=== PATIENT | male | born 1965 | race Caucasian/White ===

== ENCOUNTER 2020-07-27 22:30 | Emergency (ER) | payer SELFPAY ==
--- NOTE | 2020-07-27 22:58 | EDM.PDOC ---
ED HPI GENERAL MEDICAL PROBLEM - General Chief Complaint: Lower Extremity Injury/Pain Stated Complaint: [facility] Time Seen by Provider: 07/27/20 22:58 Right Knee Pain Score (Numeric/FACES): 5 - Related Data Allergies Allergy/AdvReac Type Severity Reaction Status Date / Time No Known Allergies Allergy Verified 07/27/20 22:41 Home Meds: Home Meds . [No Known Home Meds] 07/27/20 [History] Review of Systems - Review of Systems Review Of Systems: Comprehensive ROS is negative, except as noted in HPI. ED EXAM, GENERAL - Physical Exam Exam: See Below Free Text/Narrative:: See the physical exam by Madelaine Kaur Course - Vital Signs Last Recorded V/S: Last Vital Signs Temp 36.3 C 07/27/20 22:35 Pulse 64 07/27/20 22:35 Resp 20 07/27/20 22:35 BP 161/100 H 07/27/20 22:35 Pulse Ox 93 L 07/27/20 22:35 - Orders/Labs/Meds Orders: Active Orders 24 hr Category Date Time Status Knee 3V Rt [CR] Stat Exams 07/27/20 23:16 Ordered Knee wo Cont Rt [CT] Stat Exams 07/28/20 01:01 Taken Tibia Fibula Rt [CR] Stat Exams 07/27/20 23:16 Taken Meds: Medications Discontinued Medications Generic Name Dose Route Start Last Admin Trade Name Dominguezq PRN Reason Stop Dose Admin Fentanyl 50 mcg 07/28/20 01:57 07/28/20 02:06 Fentanyl 100 Mcg/2 Ml Sdv IVPUSH 07/28/20 01:58 50 mcg ONETIME STA Administration - Re-Assessments/Exams Free Text/Narrative Re-Assessment/Exam: 07/28/20 01:04 X-rays reviewed he has a proximal tibia fracture this may extend into a medial plateau fracture and I cannot exclude a proximal fibular fracture. Dr. Dwyer, on-call orthopedic surgeons and is, has reviewed these is requesting a knee CT without contrast with 3D reconstruction. And will call the patient on Thursday to formulate a plan he wants the patient placed in knee immobilizer and crutches 07/28/20 02:[address] has been obtained. This will be forwarded to [facility] in [place] as well as [facility] [place]. Patient was fitted with a knee immobilizer and fitted for crutches will discharge home. He should be contacted Thursday by [facility] to schedule a appointment for early next week. The patient is given a knee have mobilizer to minimize further knee and lower leg fracture injury and further damage. He is given crutches because he cannot bear weight on this leg because of the multitude of fractures. Departure - Departure Time of Disposition: 02:31 Disposition: Home, Self-Care Clinical Impression: Fracture of proximal end of right tibia - Discharge Information Instructions: Crutch Use, Adult, [id number], How to Use a Knee Immobilizer, [id number], Tibial Fracture, Adult Forms: ED Department Discharge Additional Instructions: Return to the emergency room with any questions problems or worsening symptoms. You should be contacted by [facility] Thursday if you do not hear from them give them a call [phone]. Use the crutches at all times do not bear weight on this leg. Wear the knee immobilizer at all times. For pain use Tylenol primarily however remain to give you some hydrocodone because you will need it. Keep an eye on your total Tylenol intake it should not exceed 4000 mg in a 24-hour. Each of the pain pills contains 325 mg of Tylenol. You will be dispensed 20 pain pills from the machine out in the waiting room. Take 1 or 2 every 6 hours as needed. If you are using these on a regular basis use a good stool softener because they can cause constipation. Do not drive or return to work within 12 hours of using this medication. Sepsis Event Note (ED) - Evaluation Sepsis Screening Result: No Definite Risk - Focused Exam Vital Signs: Vital Signs Temp Pulse Resp BP Pulse Ox 07/27/20 22:35 36.3 C 64 20 161/100 H 93 L - My Orders Last 24 Hours: My Active Orders 07/28/20 01:01 Knee wo Cont Rt [CT] Stat - Assessment/Plan Last 24 Hours: My Active Orders 07/28/20 01:01 Knee wo Cont Rt [CT] Stat
--- NOTE | 2020-07-27 23:05 | EDM.PDOC ---
<[place] - Last Filed: 07/27/20 23:48> ED HPI GENERAL MEDICAL PROBLEM - General Chief Complaint: Lower Extremity Injury/Pain Stated Complaint: [facility] Time Seen by Provider: 07/27/20 22:58 Source of Information: Reports: Patient, RN Notes Reviewed History Limitations: Reports: No Limitations - History of Present Illness INITIAL COMMENTS - FREE TEXT/NARRATIVE: Patient is a 55-year-old male who presents to the ER for the evaluation of a right lower leg injury. Patient was brought in by [facility]. He was at a local hotel, in the parking lot after he had had 2 alcoholic beverages, got his foot caught in a skid steer pallet fork and then fell over the pallet fork. He has a few skin tears to his right forearm, and some bruising, and he states he does bruise easy however he does not take any sort of anticoagulants. He is having pain mainly into his right knee, and right lower leg just below his knee. He is denying any numbness or tingling distal to the injury, and all pulses are present and palpable. He has no pain in his hip. There is a small skin abrasion on the anterior surface of his right knee. Notes that he was not able to bear weight on the extremity prior to getting into the ambulance. Patient denies any other sick-like symptoms, fever/chills, cough/shortness of breath, nausea/vomiting/diarrhea. Right Knee Pain Score (Numeric/FACES): 5 - Related Data Allergies Allergy/AdvReac Type Severity Reaction Status Date / Time No Known Allergies Allergy Verified 07/27/20 22:41 Home Meds: Home Meds Hydrocodone/Acetaminophen [Hydrocodone-Acetamin 7.5-325] 1 - 2 each PO Q6H #20 tablet 07/28/20 [Rx] Review of Systems - Review of Systems Review Of Systems: Comprehensive ROS is negative, except as noted in HPI. ED EXAM, GENERAL - Physical Exam Exam: See Below Exam Limited By: No Limitations General Appearance: Alert, WD/WN, No Apparent Distress Throat/Mouth: Normal Inspection, Normal Lips, Normal Teeth, Normal Gums, Normal Oropharynx, Normal Voice, No Airway Compromise Head: Atraumatic, Normocephalic Neck: Normal Inspection Respiratory/Chest: No Respiratory Distress, Lungs Clear, Normal Breath Sounds, No Accessory Muscle Use, Chest Non-Tender Cardiovascular: Normal Peripheral Pulses, Regular Rate, Rhythm, No Edema, No Murmur Extremities: Normal Capillary Refill, Limited Range of Motion (of right knee/lower leg d/t pain) Neurological: Alert, Oriented, Normal Cognition, No Motor/Sensory Deficits Psychiatric: Normal Affect, Normal Mood Skin Exam: Warm, Dry, Normal Color, No Rash, Wound/Incision (Multiple small skin tears/abrasions to his right forearm, and Right anterior knee. All bleeding is controlled.) Course - Re-Assessments/Exams Free Text/Narrative Re-Assessment/Exam: 07/27/20 23:06 Patient presents to the ER for injury sustained after fall. We will go ahead and x-ray his knee, and right tib-fib for evaluation, patient notes that his pain is okay if he does not move his leg. Is not asking for any sort of pain medication at this time. 07/27/20 23:49 Apparently there is an issue with the orders, them not crossing over so x-rays have been delayed. At this point it is at the end of my shift, I will transfer care to Dr. Patiño for further disposition and management. He is aware of the patient. Departure - Departure Disposition: Home, Self-Care 01 Clinical Impression: Fracture of proximal end of right tibia - Discharge Information Prescriptions: Hydrocodone/Acetaminophen [Hydrocodone-Acetamin 7.5-325] 1 - 2 each PO Q6H #20 tablet Instructions: Crutch Use, Adult, [id number], How to Use a Knee Immobilizer, E asy-to-Read, Tibial Fracture, Adult Referrals: PCP,Not In Area [Primary Care Provider] - Forms: ED Department Discharge Additional Instructions: Return to the emergency room with any questions problems or worsening symptoms. You should be contacted by [facility] Thursday if you do not hear from them give them a call [phone]. Use the crutches at all times do not bear weight on this leg. Wear the knee immobilizer at all times. For pain use Tylenol primarily however remain to give you some hydrocodone because you will need it. Keep an eye on your total Tylenol intake it should not exceed 4000 mg in a 24-hour. Each of the pain pills contains 325 mg of Tylenol. You will be dispensed 20 pain pills from the machine out in the waiting room. Take 1 or 2 every 6 hours as needed. If you are using these on a regular basis use a good stool softener because they can cause constipation. Do not drive or return to work within 12 hours of using this medication. Sepsis Event Note (ED) - Evaluation Sepsis Screening Result: No Definite Risk <Rock Patiño - Last Filed: 07/28/20 19:18> Course - Vital Signs Last Recorded V/S: Last Vital Signs Temp 36.3 C 07/27/20 22:35 Pulse 64 07/27/20 22:35 Resp 20 07/27/20 22:35 BP 161/100 H 07/27/20 22:35 Pulse Ox 93 L 07/27/20 22:35 - Orders/Labs/Meds Orders: Active Orders 24 hr Category Date Time Status Knee wo Cont Rt [CT] Stat Exams 07/28/20 01:01 Taken Meds: Medications Discontinued Medications Generic Name Dose Route Start Last Admin Trade Name Freq PRN Reason Stop Dose Admin Hydrocodone Bitart/Acetaminophen 1 tab 07/28/20 02:47 07/28/20 02:52 Acetaminophen/Hydrocodone 325-5 Mg Tab PO 07/28/20 02:48 1 tab ONETIME ONE Administration Fentanyl 50 mcg 07/28/20 01:57 07/28/20 02:06 Fentanyl 100 Mcg/2 Ml Sdv IVPUSH 07/28/20 01:58 50 mcg ONETIME STA Administration Departure - Departure Time of Disposition: 02:00 - My Orders Last 24 Hours: My Active Orders 07/28/20 01:01 Knee wo Cont Rt [CT] Stat - Assessment/Plan Last 24 Hours: My Active Orders 07/28/20 01:01 Knee wo Cont Rt [CT] Stat
[2020-07-28] MEDS ORDERED: fentaNYL 100 MCG/2 ML SDV IVPUSH STA (01:57)
[2020-07-28] MEDS ORDERED: Acetaminophen/HYDROcodone 325-5 MG Tab PO ONE (02:47)
--- NOTE | 2020-07-28 14:32 | CR ---
Right tibia and fibula: AP and lateral views of the right tibia and fibula were obtained. Comparison: No previous fibula or tibia study is available. Fracture is identified within the lateral tibial plateau which shows mild angulation. Fracture extends into the proximal diaphysis of the tibia. Nondisplaced fracture is noted within the proximal fibula. Joint effusion is noted within the knee. Soft tissue swelling is noted. Impression: 1. Proximal tibial fracture as noted above. 2. Nondisplaced proximal fibular fracture is also noted. 3. Soft tissue findings as noted above. Diagnostic code #3
--- NOTE | 2020-07-28 14:32 | CR ---
Right knee: 4 views of the right knee were obtained. Comparison: No previous knee study is available. Comminuted fracture is noted within the lateral joint compartment with deformity of the lateral tibial plateau. Vertical fracture line extends more distally into the tibia as well as additional proximal diaphyseal fracture line. Distal femur is intact. Soft tissue swelling is noted. Joint effusion is seen. Impression: 1. Comminuted lateral malleolus fracture with deformity of the lateral tibial plateau. 2. Additional fracture line extends into the proximal diaphysis of the tibia. 3. Other soft tissue findings as noted above. Diagnostic code #3
--- NOTE | 2020-07-30 08:41 | CT ---
CT right knee Technique: Multiple axial sections through the right knee were obtained. Reconstructed coronal and sagittal images were obtained. Comparison: Prior knee and tibia/fibula radiographs performed on 07/27/20. Findings: Depressed lateral tibial plateau fracture is noted. Depression of the lateral tibial plateau is seen by about 1.9 cm. Fracture is also noted at the base of the medial tibial plateau. There is one fracture line which extends into the articular margin of the medial tibial plateau which is nondisplaced. Fracture extends from the lateral joint into the upper diaphysis of the tibia. Horizontal fracture line is noted within the proximal tibial diaphysis. Fracture is noted within the proximal fibula. Joint effusion is seen. Impression: 1. Depressed lateral tibial plateau fracture. 2. Medial malleolus fracture is also noted, this extends into the articular margin of the medial malleolus and appears nondisplaced. 3. Fracture is noted along the lateral aspect into the proximal diaphysis of the tibia which is nondisplaced. 4. Fracture within the proximal fibula. 5. Joint effusion. Diagnostic code #3 I agree with preliminary report from [facility], finalized on 07/28/20, 3:23 AM CDT, code 1 MTDD
== END 2020-07-28 03:00 | disposition home or self-care (01) ==
LOC: JD.ED 22:30
DX: S82.191A Other fracture of upper end of right tibia, initial encounter for closed fracture (principal); W18.39XA Other fall on same level, initial encounter; W23.0XXA Caught, crushed, jammed, or pinched between moving objects, initial encounter
CPT/HCPCS: 73562; 73590; 73700; 96374; 99284; A9270; J3010; 99283